=== PATIENT | male | born 1950 ===

== ENCOUNTER 2017-02-25 17:45 | Emergency (ER) | payer OTHER ==
[~2017-02-25] VITALS: Ht 190.5 cm; Wt 144.0 kg
[2017-02-25 17:53] VITALS: BP 179/92; PULSE 71; RESP 16; TEMP 98.1; O2SAT 97
[2017-02-25] MEDS ORDERED: LISI10TA PO (18:03)
[2017-02-25 18:33] LABS: AUTOMATED NEUTROPHIL # 4.7 TH/MM3 (1.8-7.7); BASOPHIL # 0.1 TH/MM3 (0-0.2); BASOPHIL % 1.2 % (0.0-2.0); EOSINOPHIL # 0.3 TH/MM3 (0-0.4); EOSINOPHIL % 3.5 % (0.0-4.0); HEMATOCRIT 50.7 % (39.0-51.0); HEMO FLAGS DIFF FINAL; LYMPH % 27.6 % (9.0-44.0); LYMPHOCYTE # 2.2 TH/MM3 (1.0-4.8); MEAN CELL VOLUME 89.4 FL (80.0-100.0); MEAN CORPUSCULAR HEMOGLOBIN 30.2 PG (27.0-34.0); MEAN CORPUSCULAR HGB CONC 33.8 % (32.0-36.0); MONO % 9.5 % (0.0-8.0); NEUT % 58.2 % (16.0-70.0); PLATELET COUNT 161 TH/MM3 (150-450); RED BLOOD COUNT 5.67 MIL/MM3 (4.50-5.90); WHITE BLOOD COUNT 8.1 TH/MM3 (4.0-11.0)
--- NOTE | 2017-02-25 18:33 | PD ---
HPI Chief Complaint: Musculoskeletal Complaint Time Seen by Provider: 18:03 Travel History International Travel<30 days: No Contact w/Intl Traveler<30days: No Traveled to known affect area: No History of Present Illness HPI Patient is a 66-year-old male who presents to emergency room for evaluation of possible DVT. Patient reports that 5 years ago, he was diagnosed with DVT to his left lower extremity, reports that years later, he had a DVT to his right lower extremity. Patient reports that up until 3 months ago, he was taking Eliquis for DVT but stopped taking it due to resolution of symptoms. Reports that for the past 3 days, he has noticed increased swelling and pain to his left lower extremity. Denies any chest pain or shortness of breath. Denies history of PE. Reports that he was supposed to follow up with a sheeting puller for workup of why he was predisposed to DVT - reports that the appointment got "messed up" and he never ended up making it to the appointment. PFSH Past Medical History Hx Anticoagulant Therapy: No Deep Vein Thrombosis: Yes (L/R CALF) Hypertension: Yes Tetanus Vaccination: > 5 Years Influenza Vaccination: No Past Surgical History Tonsillectomy: Yes Social History Alcohol Use: Yes (2 DRINKS WEEKLY) Tobacco Use: No Substance Use: No Allergies-Medications (Allergen,Severity, Reaction): Coded Allergies: No Known Allergies (Unverified , 02/25/17) Reported Meds & Prescriptions Reported Meds & Active Scripts Active Eliquis (Apixaban) 5 Mg Tab 10 Mg PO BID Eliquis (Apixaban) 5 Mg Tab 5 Mg PO BID Reported Lisinopril-Hctz 10-12.5 Mg Tab 1 Tab PO DAILY Review of Systems General / Constitutional: No: Fever Eyes: No: Visual changes HENT: No: Headaches Cardiovascular: No: Chest Pain or Discomfort Respiratory: No: Cough, Shortness of Breath, Wheezing Gastrointestinal: No: Abdominal Pain Genitourinary: No: Dysuria Musculoskeletal: Positive: Cramping (lle cramping/edema), No: Pain Skin: No Rash Neurologic: No: Weakness Psychiatric: No: Depression Endocrine: No: Polydipsia Hematologic/Lymphatic: No: Easy Bruising Physical Exam Narrative GENERAL: NAD SKIN: Focused skin assessment warm/dry. HEAD: Atraumatic. Normocephalic. EYES: Pupils equal and round. No scleral icterus. No injection or drainage. ENT: No nasal bleeding or discharge. Mucous membranes pink and moist. NECK: Trachea midline. No JVD. CARDIOVASCULAR: Regular rate and rhythm. No murmur appreciated. RESPIRATORY: No accessory muscle use. Clear to auscultation. Breath sounds equal bilaterally. GASTROINTESTINAL: Abdomen soft, non-tender, nondistended. Hepatic and splenic margins not palpable. MUSCULOSKELETAL: No obvious deformities. No clubbing. No cyanosis. + edema to LLE, + Homans sign on left side. NEUROLOGICAL: Awake and alert. No obvious cranial nerve deficits. Motor grossly within normal limits. Normal speech. PSYCHIATRIC: Appropriate mood and affect; insight and judgment normal. Data Data Last Documented VS Vital Signs Date Time Temp Pulse Resp B/P (MAP) Pulse Ox O2 Delivery O2 Flow Rate FiO2 02/25/17 19:05 68 16 02/25/17 19:00 167/90 (115) 96 Room Air 02/25/17 17:53 98.1 Orders Orders Basic Metabolic Panel (Bmp) (02/25/17 18:14) Complete Blood Count With Diff (02/25/17 18:14) Prothrombin Time / Inr (Pt) (02/25/17 18:14) Act Partial Throm Time (Ptt) (02/25/17 18:14) Iv Access Insert/Monitor (02/25/17 18:14) Us Leg Venous Doppler Bilat (02/25/17 ) Apixaban (Eliquis) (02/25/17 20:15) Ed Discharge Order (02/25/17 20:19) Labs Laboratory Tests Test 02/25/17 18:25 White Blood Count 8.1 TH/MM3 Red Blood Count 5.67 MIL/MM3 Hemoglobin 17.1 GM/DL Hematocrit 50.7 % Mean Corpuscular Volume 89.4 FL Mean Corpuscular Hemoglobin 30.2 PG Mean Corpuscular Hemoglobin Concent 33.8 % Red Cell Distribution Width 12.0 % Platelet Count 161 TH/MM3 Mean Platelet Volume 9.4 FL Neutrophils (%) (Auto) 58.2 % Lymphocytes (%) (Auto) 27.6 % Monocytes (%) (Auto) 9.5 % Eosinophils (%) (Auto) 3.5 % Basophils (%) (Auto) 1.2 % Neutrophils # (Auto) 4.7 TH/MM3 Lymphocytes # (Auto) 2.2 TH/MM3 Monocytes # (Auto) 0.8 TH/MM3 Eosinophils # (Auto) 0.3 TH/MM3 Basophils # (Auto) 0.1 TH/MM3 CBC Comment DIFF FINAL Differential Comment Prothrombin Time 10.7 SEC Prothromb Time International Ratio 1.0 RATIO Activated Partial Thromboplast Time 28.1 SEC Blood Urea Nitrogen 20 MG/DL Creatinine 1.20 MG/DL Random Glucose 98 MG/DL Calcium Level 9.1 MG/DL Sodium Level 140 MEQ/L Potassium Level 4.7 MEQ/L Chloride Level 104 MEQ/L Carbon Dioxide Level 28.5 MEQ/L Anion Gap 8 MEQ/L Estimat Glomerular Filtration Rate 61 ML/MIN MDM Medical Decision Making Medical Screen Exam Complete: Yes Emergency Medical Condition: Yes Medical Record Reviewed: Yes Interpretation(s) Vital Signs Date Time Temp Pulse Resp B/P (MAP) Pulse Ox O2 Delivery O2 Flow Rate FiO2 02/25/17 17:53 98.1 71 16 179/92 (121) 97 Differential Diagnosis DVT, electrolyte abnormality Narrative Course 66 year old male who presents to the ER for evaluation of possible DVT. Reports increased swelling and tenderness to left calf for past 3 days. He was last on eliquis 3 months ago for treatment of dvt. During the course of the patients emergency department visit, the patients history, examination, and differential diagnosis were reviewed with the patient. The patient was placed on a desk monitor with oximetry and frequent blood pressure monitoring. The patient had [-] IV access obtained and blood work sent for analysis. The patients laboratory studies were reviewed and remarkable for CBC & BMP Diagram 02/25/17 18:25 Calcium Level 9.1 Radiology studies were reviewed and remarkable for Deep vein thrombosis: There is an occlusive thrombus present in the distal left greater saphenous vein extending down to the ankle. There is nonocclusive thrombus noted in the right mid superficial femoral vein, right popliteal vein and right peroneal vein which are only partial compressible. The common femoral vein is patent. Patient reports that he has been on Coumadin as well as Eliquis in the past, he was on Eliquis 3 months ago and was taken off of it as he had resolution of his DVTs. Plan to restart patient on Eliquis. Patient will follow-up with his primary care doctor and sheeting puller and will return to emergency room as needed. Patient was given a copy of his studies at discharge. Patient will return to ER as needed. Patient appreciative of care Diagnosis Primary Impression: DVT (deep venous thrombosis) Qualified Codes: I82.403 - Acute embolism and thrombosis of unspecified deep veins of lower extremity, bilateral Patient Instructions: General Instructions Additional Instructions: Please provide patient with a copy of their lab work and studies at discharge* * Please follow up with your primary care doctor in 2-3 days Return to the ER if symptoms worsen or progress Return to the ER as needed Please take all medications as prescribed Your diagnosed with a DVT, restart Eliquis as prescribed 1) take Eliquis 10 mg twice a day for 7 days 2) then after 7 days, start Eliquis 5mg twice a day Please bring copy of your studies as well as your lab work to doctor's office for follow-up. You will need to follow-up with a sheeting puller as soon as possible. Med/Other Pt SpecificInfo: Prescription(s) given Scripts Apixaban (Eliquis) 5 Mg Tab 10 MG PO BID for Blood Clot Prevention, #14 TAB 0 Refills Prov: Angella Burrell DO 02/25/17 Apixaban (Eliquis) 5 Mg Tab 5 MG PO BID for Blood Clot Prevention, #60 TAB 0 Refills Prov: Angella Burrell DO 02/25/17 Disposition: 01 DISCHARGE HOME Condition: Stable Angella Burrell DO Feb 25, 2017 18:33
[2017-02-25 18:51] LABS: POTASSIUM 4.7 MEQ/L (3.5-5.1)
[2017-02-25 18:54] LABS: BICARBONATE 28.5 MEQ/L (21.0-32.0)
[2017-02-25 18:57] LABS: APTT (PATIENT) 28.1 SEC (24.3-30.1); PROTHROMBIN TIME - PATIENT 10.7 SEC (9.8-11.6)
[2017-02-25 19:00] VITALS: BP 167/90; PULSE 68; RESP 16; O2SAT 96
--- NOTE | 2017-02-25 19:50 | RADRPT ---
EXAM DATE/TIME: 02/25/2017 19:19 [facility] COMPARISON: No previous studies available for comparison. INDICATIONS : Bilateral leg swelling. MEDICAL HISTORY : Hypertension. Deep vein thrombosis. SURGICAL HISTORY : Tonsillectomy. ENCOUNTER: Initial ACUITY: 3 days PAIN SCORE: 6/10 LOCATION: Bilateral legs. TECHNIQUE: Venous ultrasound of the left and right leg was performed from the inguinal ligament to the proximal calf. Real-time, color Doppler and spectral tracing, compression and augmentation techniques were us ed. FINDINGS: Occlusive thrombus is present in the distal left greater saphenous vein extending down to the an kle. Nonocclusive thrombus is also noted in the right mid superficial femoral vein, right popliteal v ein and right peroneal vein which are only partially compressible. The common femoral vein is patent. CONCLUSION: 1. Deep venous thrombosis 2. Superficial venous thrombosis Anuel Dailey MD on February 25, 2017 at 19:47 Board Certified Radiologist. This report was verified electronically.
[2017-02-25] MEDS ORDERED: APIX5TAB PO (20:12)
[2017-02-25] MEDS ORDERED: APIXABAN 5 MG TABLET PO ONE (20:15)
[2017-02-25 20:23] VITALS: BP 154/87; PULSE 66; RESP 16; O2SAT 96
[2017-02-25 20:46] VITALS: BP 154/87; PULSE 66; RESP 16; O2SAT 96
== END 2017-02-25 20:40 | disposition home or self-care (01) ==
LOC: PHED 17:45
DX: I82.403 Acute embolism and thrombosis of unspecified deep veins of lower extremity, bilateral (principal); I10 Essential (primary) hypertension; Z79.01 Long term (current) use of anticoagulants
CPT/HCPCS: 80048; 85025; 85610; 85730; 93970; 99284